=== PATIENT | female | born 1945 | race Caucasian/White ===

== ENCOUNTER 2019-06-02 01:27 | Emergency (ER) | payer MEDICARE, MEDICAID ==
[~2019-06-02] VITALS: Ht 152.4 cm; Wt 70.5 kg
[~2019-06-02 01:27] MED LIST: ALBU8.5H8 IH; ASPI-611 PO; ATOR20TA PO; BUSP15TA8 PO; CLOP75TA15 PO; GABA-530 PO; LOSA25TA41 PO; PANT40TA4 PO; QUET-1 PO; SPIIN INH; TRAZ-251 PO; VARE0.5T PO; VENL75CA55 PO; ZOLP10TA PO
[2019-06-02] MEDS ORDERED: HYDROcodone/acetaminophen 5mg/325mg tablet PO ONE (01:30)
[2019-06-02] MEDS ORDERED: CYCL-1 PO (02:27)
[2019-06-02 02:55] VITALS: BP 97/76
== END 2019-06-02 02:58 | disposition home or self-care (01) ==
LOC: ER 01:28
DX: R07.81 Pleurodynia (principal); R05 Cough; M19.90 Unspecified osteoarthritis, unspecified site; Z88.1 Allergy status to other antibiotic agents; Z88.2 Allergy status to sulfonamides; Z88.8 Allergy status to other drugs, medicaments and biological substances; Z79.82 Long term (current) use of aspirin; Z79.899 Other long term (current) drug therapy
CPT/HCPCS: 71100; 99284